=== PATIENT | female | born 1950 ===

== ENCOUNTER 2025-03-29 13:12 | Day surgery (SDC) | payer MEDICARE ==
[~2025-03-29] VITALS: Ht 160 cm; Wt 64.2 kg
[2025-03-29] MEDS ORDERED: LOSARTAN POTASS25 M2 (13:40)
[2025-03-29] MEDS ORDERED: NEURONTIN300 MG (13:40)
[2025-03-29] MEDS ORDERED: PANTOPRAZOLE SO2010 (13:41)
[2025-03-29] MEDS ORDERED: BUPROPION XL150 M1 (13:41)
[2025-03-29] MEDS ORDERED: TRAZ50 (13:41)
[2025-03-29] MEDS ORDERED: OXYC5 (13:41)
[2025-03-29] MEDS ORDERED: ESCI10 (13:41)
[2025-03-29] MEDS ORDERED: BUSPIRONE HCL5 M6 (13:41)
== END 2025-03-29 15:35 | disposition home or self-care (01) ==
LOC: ORSCSDS 13:12
PROVIDERS: Specialist
PROC: 0DB98ZX Excision of Duodenum, Via Natural or Artificial Opening Endoscopic, Diagnostic (ICD-10-PCS; principal; 2025-03-29 14:30)
PROC: 0DB68ZX Excision of Stomach, Via Natural or Artificial Opening Endoscopic, Diagnostic (ICD-10-PCS; principal; 2025-03-29 14:30)
DX: R10.13 Epigastric pain (principal); K29.50 Unspecified chronic gastritis without bleeding; Z98.890 Other specified postprocedural states; I12.9 Hypertensive chronic kidney disease with stage 1 through stage 4 chronic kidney disease, or unspecified chronic kidney disease; N18.30 Chronic kidney disease, stage 3 unspecified; Z79.899 Other long term (current) drug therapy
CPT/HCPCS: 88305; 88342; J2704; J7120